=== PATIENT | female | born 1960 | race Caucasian/White ===

== ENCOUNTER 2021-01-19 15:58 | Outpatient (REF) | payer OTHER, SELFPAY ==
--- NOTE | ~2021-01-19 | MR_ITS ---
EXAMINATION: MR LUMBAR SPINE WITHOUT CONTRAST CLINICAL INFORMATION: Radiculitis. COMPARISON: Multiple prior MRI scans, the most recent from 07/03/2017. TECHNIQUE: MRI of the lumbar spine was obtained using routine sequences without contrast. FINDINGS: VERTEBRAL BODIES AND PARASPINAL STRUCTURES: There is a mild retrolisthesis of L4 on L5. There is marked narrowing of intervertebral disc height at L4-L5 and L5-S1 and there are degenerative endplate contour changes at these levels which have progressed compared to prior imaging. There appears to be partial fusion of the bodies of L5 and S1 bilaterally. There are new Schmorl's nodes at adjacent endplates at L4-L5. However, there has been interval decrease in the edematous endplate signal change at L4-L5. There is mild edematous signal in the right lateral osteophytes at L4-L5. There are no acute fractures and vertebral body heights are maintained. Overall, marrow signal is homogenous. The infrarenal abdominal aorta is slightly ectatic but not aneurysmal. The visualized pelvic structures are unremarkable. CONUS MEDULLARIS AND CAUDA EQUINA: Normal, terminating at the level of L1-L2. The lower thoracic spinal cord appears normal. The cauda equina nerve roots and filum terminale appear normal. SPINAL LEVELS: T11-T12: There has been interval regression of the small right-sided disc protrusion seen at this level on prior imaging. There is no central stenosis or compression of the lower thoracic spinal cord. The neural foramina are patent bilaterally. L1-L2: The facet joints appear normal bilaterally. Disc contour is normal. There is no central stenosis or foraminal narrowing. L2-L3: There is mild bilateral facet arthropathy. There is a mild diffuse disc bulge. There is no central stenosis or foraminal narrowing. L3-L4: There is mild to moderate bilateral facet arthropathy. There is a posterior disc protrusion which is focally more prominent in the midline with mild distortion of the ventral thecal sac, but not significantly changed compared to prior imaging. There are bilateral inferior foraminal disc protrusions without nerve root impingement. There is narrowing of the bilateral subarticular recesses, and there may be impingement traversing L4 nerve roots. There is mild central stenosis. L4-L5: There is moderate bilateral facet arthropathy. There is a broad-based posterior disc protrusion, which appears similar compared to prior imaging. There has been interval regression of the previously demonstrated extruded disc component extending behind the L5 centrally and to the right of midline. A small residual protruded fragment is demonstrated. There is narrowing of the bilateral subarticular recesses with impingement on the traversing L5 nerve roots. There is moderate central stenosis. L5-S1: There is mild bilateral facet arthropathy. There is a posterior disc osteophyte complex which does not have significant mass effect on the thecal sac. There are bilateral foraminal disc osteophyte complexes with impingement on the exiting L5 nerve roots, more prominently on the right. There is narrowing of the subarticular recesses without definite traversing S1 nerve root impingement. There is no central stenosis. MR/MR lumbar spine wo con IMPRESSION: 1. At L4-L5 there is facet arthropathy and there is a posterior disc protrusion. There has been interval regression of the disc extrusion extending into the right subarticular recess at this level, with a small extruded component remaining. There is persistent narrowing of the subarticular recesses with impingement on the traversing L5 nerve roots and there is moderate central stenosis. 2. At L3-L4 there is facet arthropathy and there is a posterior disc protrusion. There is narrowing of the bilateral subarticular recesses with impingement on the traversing L4 nerve roots. There is mild central stenosis. 3. At L5-S1 there is a posterior disc osteophyte complex extending into the neural foramina bilaterally, impinging on the exiting L5 nerve roots. There is no central stenosis. 4. There has been interval regression of the small right-sided disc protrusion which was demonstrated at T11-T12.
== END 2021-01-19 15:59 | disposition home or self-care (01) ==
LOC: HO.MRI 15:58
PROVIDERS: Visit Provider Physical Medicine & Rehabilitation
DX: M54.16 Radiculopathy, lumbar region (principal)
CPT/HCPCS: 72148

== ENCOUNTER → 2022-08-02 10:43 | Outpatient (BNVA) | payer OTHER, BC, SELFPAY | PROVIDERS: PCP Family Medicine; Visit Provider Internal Medicine | DX: M48.062 Spinal stenosis, lumbar region with neurogenic claudication (principal) | CPT/HCPCS: 99202 ==

== ENCOUNTER 2022-11-21 19:02 | Outpatient (REF) | payer OTHER, BC, SELFPAY ==
--- NOTE | ~2022-11-21 | MR_ITS ---
EXAMINATION: MR LUMBAR SPINE WITHOUT CONTRAST CLINICAL INFORMATION: Right leg radiculopathy. Low back pain. COMPARISON: MRI dated 01/19/2021. TECHNIQUE: Multiplanar, multisequence imaging was obtained. FINDINGS: VERTEBRAL BODIES AND PARASPINAL STRUCTURES: Severe chronic degenerative disc disease again evident at the L4-L5 level with a mild retrosubluxation. Significant disc desiccation and partial endplate osseous fusion changes are also again visible at the L5-S1 level. No compression fractures are seen. The paraspinal soft tissues are normal. CONUS MEDULLARIS AND CAUDA EQUINE: The distal cord, conus tip, and cauda equina nerve roots are normal. SPINAL LEVELS: L1-L2: No disc pathology. No central canal stenosis or foraminal narrowing. L2-L3: Broad-based right foraminal/extraforaminal disc protrusion has developed, though without nerve root impingement. No significant foraminal encroachment evident. No central canal stenosis. L3-L4: Endplate spurring and diffuse disc bulge again visible with hypertrophic facet arthropathy. No significant central canal stenosis. Patent neural foramina. L4-L5: Severe degenerative endplate changes and loss of disc height with a diffuse disc bulge and hypertrophic facet arthropathy. Mild central canal stenosis is stable. Xaic-zm-[id number] foraminal narrowing, more so on the left side. There is what may represent a vacuum disc extrusion measuring 9 mm in size extending into the left lateral recess of L5 superiorly. L5-S1: Severe chronic disc desiccation with endplate ridging. No central canal stenosis. Stable facet arthropathy. Osseous spurring results in mild left and bdly-jo-glcemrdw right foraminal encroachment, otherwise stable. MR/MR lumbar spine wo con IMPRESSION: 1. New broad-based right foraminal/extraforaminal disc protrusion at the L2-L3 level without nerve root impingement. 2. Stable severe degenerative disc disease at the L4-L5 level with mild central canal stenosis and zfkk-yr-qqhhclqm foraminal narrowing. Questionable focal 9 mm vacuum disc extrusion extending into the left lateral recess of L5 superiorly. 3. Stable severe chronic degenerative disc disease at the L5-S1 level with mzag-xb-fimfmbqg foraminal narrowing.
== END 2022-11-21 19:03 | disposition home or self-care (01) ==
LOC: HO.MRI 19:02
PROVIDERS: Visit Provider Internal Medicine
DX: M48.062 Spinal stenosis, lumbar region with neurogenic claudication (principal)
CPT/HCPCS: 72148

== ENCOUNTER 2023-03-14 11:19 | Outpatient (AMB) | payer BC, SELFPAY ==
--- NOTE | 2023-03-14 11:21 | MHC.OFFVIS ---
Intake Vital Signs 03/14/23 11:22 Height 5 ft 7 in Weight 172 lb BMI 26.9 Blood Pressure Location Lt brachial Position Sitting Respiration 12 Pulse 119 H Pulse Source Pulse Oximeter Pulse Oximetry (%) 96 Oxygen Delivery Method Room Air Intake Visit Reasons: MRI results/Confirmed/LVM Allergies No Known Drug Allergies Allergy (Unknown, Verified 03/14/23 11:23) Unknown Medication List - Last Reconciled 03/14/23 by Cristina Aldana LPN alprazolam 1 mg PO BID-TID PRN dextroamphetamine-amphetamine 12.5 mg 1 tab PO BID fentanyl 50 mcg/hr 1 patch topical Q3D lisinopril 30 mg PO DAILY mirtazapine 15 mg PO BEDTIME HPI MRI results/Confirmed/LVM HPI Details 62-year-old female who presents today to the office for a review of MRI scan. The patient reports swelling in her ankles, which started two years ago. It is sensitive to touch. She has difficulty walking or standing. She visited her foot and ankle surgeon on [facility] in [place]. She also underwent an x-ray for further evaluation. She denies any blue or black discoloration. She uses cold compression with ice, which provides mild relief from swelling. She had used braces in the past. She did use a walker at the [place] airport and was limping with ambulation. She reports right low back pain radiating down to the right leg. She has a burning sensation in her right knee. She has to rest after walking for 10?15 minutes. She has noticed gait imbalance when walking and has had a few falls. Her primary care physician adjusted and weaned her off pain medications. She used to take topical fentanyl patches for pain. She had an appointment with neurologist three weeks ago which was canceled. She did physical therapy about a year ago. [facility] Medical History (Updated 03/14/23 @ 11:54 by Charlie Funes MD) Spinal stenosis Severe recurrent major depression without psychotic features Sciatica of right side Post traumatic stress disorder Pap smear for cervical cancer screening Panic disorder Migraine Lumbar herniated disc Lipoma of back Hyperlipidemia History of degenerative disc disease Headache H/O mammogram Dysmenorrhea Chronic back pain Anxiety Benign essential hypertension Surgical History (Updated 09/24/21 @ 14:07 by MERT Garcia) No pertinent past surgical history Family History (Updated 09/24/21 @ 14:08 by MERT Garcia) Mother High blood pressure Anxiety Father No problems noted. Other Mental health problem Social History (Updated 09/24/21 @ 14:08 by MERT Garcia) Housing: House Alcohol intake: former Patient Tobacco Use Status: Current someday Tobacco user Cigarettes Per Day: 3 e-Cigarette/Vaping Use: Never Used Second Hand Smoke Exposure: Yes service: No Current occupational status: disabled Current occupational exposures/hazards: No Cognitive needs: No Hearing needs: No Vision needs: Yes (reading glasses) Review of Systems Const All systems reviewed & are unremarkable except as noted in HPI and below Physical Exam Vital Signs: Last Vital Signs Pulse 119 H 03/14/23 11:22 Resp 12 03/14/23 11:22 Pulse Ox 96 03/14/23 11:22 Oxygen Delivery Method Room Air 03/14/23 11:22 BMI result Body Mass Index 26.9 General: Appears afebrile. Alert and oriented. Mood and affect appropriate. Follows and participates in conversation appropriately. Respiratory effort is unlabored. Able to transition from sit to stand unassisted. Ambulates with bilaterally normal heel strike and toe off. Results Reviewed Results Reviewed: 11/21/22: MR LUMBAR SPINE WITHOUT CONTRAST FINDINGS: VERTEBRAL BODIES AND PARASPINAL STRUCTURES: Severe chronic degenerative disc disease again evident at the L4-L5 level with a mild retrosubluxation. Significant disc desiccation and partial endplate osseous fusion changes are also again visible at the L5-S1 level. No compression fractures are seen. The paraspinal soft tissues are normal. CONUS MEDULLARIS AND CAUDA EQUINE: The distal cord, conus tip, and cauda equina nerve roots are normal. SPINAL LEVELS: L1-L2: No disc pathology. No central canal stenosis or foraminal narrowing. L2-L3: Broad-based right foraminal/extraforaminal disc protrusion has developed, though without nerve root impingement. No significant foraminal encroachment evident. No central canal stenosis. L3-L4: Endplate spurring and diffuse disc bulge again visible with hypertrophic facet arthropathy. No significant central canal stenosis. Patent neural foramina. L4-L5: Severe degenerative endplate changes and loss of disc height with a diffuse disc bulge and hypertrophic facet arthropathy. Mild central canal stenosis is stable. Kfix-az-gchlrkdf foraminal narrowing, more so on the left side. There is what may represent a vacuum disc extrusion measuring 9 mm in size extending into the left lateral recess of L5 superiorly. L5-S1: Severe chronic disc desiccation with endplate ridging. No central canal stenosis. Stable facet arthropathy. Osseous spurring results in mild left and lojv-qr-yxzwpips right foraminal encroachment, otherwise stable. IMPRESSION: 1. New broad-based right foraminal/extraforaminal disc protrusion at the L2-L3 level without nerve root impingement. 2. Stable severe degenerative disc disease at the L4-L5 level with mild central canal stenosis and fpiy-ho-qomxzbyg foraminal narrowing. Questionable focal 9 mm vacuum disc extrusion extending into the left lateral recess of L5 superiorly. 3. Stable severe chronic degenerative disc disease at the L5-S1 level with jsrk-el-lclbgvkm foraminal narrowing. 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 If she is not a candidate for surgery, we will proceed with intracept/BVN ablation procedure as a possible treatment option. For the time being, a referral was provided to physical therapy. The patient will receive a call to schedule an appointment. A referral was provided to addiction medicine for consideration of Suboxone therapy since the patient is interested in coming off of her pain medications and worried about withdrawal symptoms. In the meanwhile, I will schedule her for a right L4-5 interlaminar ROSA to control her current lumbar radicular symptoms. Discussed the risks and benefits of the procedure with the patient in detail. All questions were answered. The patient is on board with the plan. Justification for interventional therapy: ? Patient with average pain > 6/10 ? Patient has exhausted conservative therapy Scribed for Dr. Funes by Angelito Syed, lpn medical assistant, on 03/14/2023. I, Dr. Funes, have personally reviewed and agree with the information entered by the scribe. 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
[2023-03-14 11:22] VITALS: PULSE 119; RESP 12; O2SAT 96; BMI 26.9
== END 2023-03-14 12:04 | disposition home or self-care (01) ==
PROVIDERS: PCP Pediatrics; Visit Provider Internal Medicine
DX: M54.16 Radiculopathy, lumbar region (principal); Z79.891 Long term (current) use of opiate analgesic
CPT/HCPCS: 99214

== ENCOUNTER → 2023-03-14 11:19 | Outpatient (BNVA) | payer OTHER, BC, SELFPAY | PROVIDERS: PCP Pediatrics; Visit Provider Internal Medicine ==

== ENCOUNTER 2023-03-19 13:22 | Outpatient (AMB) | payer BC, SELFPAY ==
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
[2023-03-19 13:35] VITALS: BP 134/94; PULSE 99; TEMP 36.6; O2SAT 98
== END 2023-03-19 14:25 | disposition home or self-care (01) ==
PROVIDERS: PCP Pediatrics; Visit Provider Nurse Practitioner Psychiatric/Mental Health
DX: F11.20 Opioid dependence, uncomplicated (principal)
CPT/HCPCS: 99204

== ENCOUNTER → 2023-03-19 13:22 | Outpatient (BNVA) | payer BC, SELFPAY | PROVIDERS: PCP Pediatrics; Visit Provider Nurse Practitioner Psychiatric/Mental Health ==

== ENCOUNTER 2023-03-21 11:25 | Outpatient (AMB) | payer BC, SELFPAY ==
--- NOTE | 2023-03-21 11:18 | MHC.AM.SUB ---
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 She expressed wanting to be comfortable for Vic and feels the patch is the only thing that can help. [facility] Medical History (Updated 03/21/23 @ 17:00 by Elif Orosco CNP) Spinal stenosis Severe recurrent major depression without psychotic features Sciatica of right side Post traumatic stress disorder Pap smear for cervical cancer screening Panic disorder Migraine Lumbar herniated disc Lipoma of back Hyperlipidemia History of degenerative disc disease Headache H/O mammogram Dysmenorrhea Chronic back pain Anxiety Benign essential hypertension Surgical History (Updated 09/24/21 @ 14:07 by MERT Garcia) No pertinent past surgical history Family History (Updated 09/24/21 @ 14:08 by MERT Garcia) Mother High blood pressure Anxiety Father No problems noted. Other Mental health problem Social History (Updated 09/24/21 @ 14:08 by MERT Garcia) Housing: House Alcohol intake: former Patient Tobacco Use Status: Current someday Tobacco user Cigarettes Per Day: 3 e-Cigarette/Vaping Use: Never Used Second Hand Smoke Exposure: Yes service: No Current occupational status: disabled Current occupational exposures/hazards: No Cognitive needs: No Hearing needs: No Vision needs: Yes (reading glasses) Review of Systems Const Reports as per HPI Assessment & Plan Assessment & Plan (1) Opioid dependence: Code(s): F11.20 - Opioid dependence, uncomplicated Plan: patient declines to start suboxone at this time follow up scheduled for April 02 Telehealth Telehealth Location of provider rendering services: practice address Location of patient: address on file Patient Identification confirmed using: Name, : Yes Telehealth method: voice only Patient verbally consented to treatment: Yes Patient verbally consented to billing insurance company: Yes Coding Level of Care Code Tele Est Pt Level 4 (73666) Diagnoses Opioid dependence F11.20 Time Spent (min) 30 Comment 20 mins with patient remainder on chart review and documentation
== END 2023-03-21 13:22 | disposition home or self-care (01) ==
PROVIDERS: PCP Pediatrics; Visit Provider Nurse Practitioner Psychiatric/Mental Health
DX: F11.20 Opioid dependence, uncomplicated (principal)
CPT/HCPCS: 99443

== ENCOUNTER → 2023-03-21 11:25 | Outpatient (BNVA) | payer BC, SELFPAY | PROVIDERS: PCP Pediatrics; Visit Provider Nurse Practitioner Psychiatric/Mental Health ==

== ENCOUNTER 2023-04-10 13:30 | Emergency (ER) | payer BC, SELFPAY ==
--- NOTE | ~2023-04-10 | XR_ITS ---
EXAMINATION: XR LUMBOSACRAL SPINE CLINICAL INFORMATION: Low back pain COMPARISON: None available. TECHNIQUE: Three views of the lumbosacral spine. FINDINGS: Straightening of normal lordosis likely related to spasm. Spondylosis and degenerative disc space narrowing noted, most pronounced L4-S1. Small spondylitic changes seen at other lumbar levels. Sacrum grossly intact. There is degenerative change at the SI joints, left greater than right. No evidence for acute compression fracture. XR/XR lumbar spine 2-3V IMPRESSION: 1. Lumbar spasm. No acute compression fractures. 2. Spondylosis and degenerative disc space narrowing L4-S1.
--- NOTE | ~2023-04-10 | CT_ITS ---
EXAMINATION: CT HEAD WITHOUT CONTRAST CLINICAL INFORMATION: Fall head strike COMPARISON: CT head from 01/16/2006 TECHNIQUE: Contiguous axial imaging was performed from the skull base to vertex without intravenous administration of contrast. This CT examination was performed using dose optimization techniques as appropriate, variously including the following: *Automated exposure control *Adjustment of mA and/or kV according to patient size (this includes techniques or standardized protocols for targeted exams where dose is matched to indication/reason for exam; i.e. extremities or head) *Use of iterative reconstruction technique DLP: 980 mGy-cm FINDINGS: There is no evidence of acute intracranial hemorrhage or territorial infarction. Chronic white matter small vessel ischemic changes. No abnormal mass effect or midline shift is seen. [place] to white matter differentiation is well preserved. No extra-axial fluid collections are identified. The ventricles are normal in size. There is no abnormal attenuation within the brain parenchyma. The osseous structures and soft tissues are normal. The mastoid air cells and visualized portions of the paranasal sinuses are well aerated. CT/CT cervical spine wo IV con IMPRESSION: 1. No acute intracranial pathology. 2. Chronic white matter small vessel ischemic changes. EXAMINATION: Noncontrast CT scan of the cervical spine. INDICATION: Fall neck pain COMPARISON: None. TECHNIQUE: Helical, multidetector axial images were obtained from the occiput to the upper thorax. Coronal and sagittal reformats of the cervical spine were provided for interpretation. DLP: 980 mGy-cm FINDINGS: No acute fractures or dislocations of the cervical spine are seen. Multilevel degenerative changes. Anatomic alignment and positioning of the vertebral bodies and posterior elements is noted. The atlantoaxial joint and craniovertebral articulations are normal without evidence of subluxation. There is no prevertebral soft tissue swelling. Calcification right thyroid lobe. Patulous esophagus. IMPRESSION: 1. No acute visible fracture or dislocation. 2. Multilevel degenerative changes.
--- NOTE | ~2023-04-10 | XR_ITS ---
EXAMINATION: XR CHEST CLINICAL INFORMATION: Fall, chest trauma COMPARISON: None available. TECHNIQUE: Frontal view of the chest was obtained. FINDINGS: No evidence for airspace consolidation or pneumothorax. Pleural surfaces appear to be clear. Hilar structures and pulmonary vascularity within normal limits. Possible nodule of the right upper lobe projecting near the posterior sixth rib margin measuring 1.2 cm. No distinct paravertebral abnormality. XR/XR chest 1V IMPRESSION: No evidence for airspace consolidation or pneumothorax. Possible nodule of the right upper lobe. CT evaluation the chest as an outpatient could be helpful toward further clarification.
[2023-04-10 13:47] VITALS: BP 126/74; BP 180/103; PULSE 103; PULSE 110; RESP 18; TEMP 36.6; O2SAT 100; O2SAT 95; BMI 26.6
[2023-04-10 13:51] VITALS: O2SAT 95
--- NOTE | 2023-04-10 14:32 | ECG_ITS ---
Test Reason : fal Blood Pressure : / mmHG Vent. Rate : 094 BPM Atrial Rate : 094 BPM P-R Int : 148 ms QRS Dur : 088 ms QT Int : 346 ms P-R-T Axes : 086 084 036 degrees QTc Int : 432 ms Normal sinus rhythm Septal infarct , age undetermined Abnormal ECG When compared with ECG of 17-MAR-2005 13:55, Septal infarct is now Present ST no longer elevated in Inferior leads Referred By: Jessica Logan Electronically Signed By:EBER ROWLEY MD
--- NOTE | 2023-04-10 14:42 | ED_ITS ---
HPI - Syncope General Chief Complaint: Syncope Stated Complaint: Syncope Time Seen by Provider: 04/10/23 14:32 Source: patient Mode of arrival: ambulatory Limitations: no limitations History of Present Illness HPI narrative: 62-year-old female history of opiate dependence, lower back pain, lumbar radiculopathy, spinal stenosis, hypertension, anxiety, obesity, current daily smoker presenting to the emergency department with a chief complaint of ?I passed out ?patient reports she does not know when this happened and she does not know what caused it she reports she had near syncopal episodes yesterday where she felt like the room was spinning and she lost balance however today there is no warning signs prior to passing out. Denies preceding chest pain, shortness of breath. She states she may have been dizzy however unclear. She states she did lose consciousness, unclear how long she was on the ground for. After the fall she has been experiencing right-sided lower back pain with radiation to right lower extremity. She is not on blood thinners. Patient denies fevers, chills, chest pain, shortness of breath, nausea, vomiting, headache, weakness, urinary/bowel incontinence/retention, saddle paresthesias. NIH stroke scale 0 GCS 15 Related Data Home Medications Medication Instructions Recorded Confirmed lisinopril 30 mg tablet 30 mg PO DAILY 09/24/21 03/14/23 alprazolam 1 mg tablet 1 mg PO BID-TID PRN 08/02/22 03/14/23 mirtazapine 15 mg tablet 15 mg PO BEDTIME depressive 08/02/22 03/14/23 disorder dextroamphetamine-amphetamine 12.5 1 tab PO BID 03/14/23 03/14/23 mg tablet Previous Rx's Medication Instructions Recorded buprenorphine 2 mg-naloxone 0.5 mg 1 film sublingual TID #10 ea 03/19/23 sublingual film (Suboxone) buprenorphine 4 mg-naloxone 1 mg 1 film sublingual TID #21 ea 03/19/23 sublingual film (Suboxone) Allergies Allergy/AdvReac Type Severity Reaction Status Date / Time No Known Drug Allergies Allergy Unknown Unknown Verified 03/19/23 13:37 Review of Systems 2 Review of Systems: Constitutional : No Weight loss, No Fever, No Chills, ENT/Mouth : No Hearing loss, No Ear Pain, No Nasal Congestion, No Sinus Pain, No Hoarseness, No sore throat, No Rhinorrhea, No Swallowing Difficulty Cardiovascular : No Chest Pain, No SOB Respiratory : No Cough, No Dyspnea Gastrointestinal : No Nausea, No Vomiting, No Diarrhea, No abdominal Pain, No Hematochezia, No Melena Genitourinary : No Dysuria, No Urinary Frequency, No Hematuria, No Urinary Incontinence, Musculoskeletal : positive back pain Skin : No Skin Lesions, No rash Neuro : No Weakness, No Numbness, No Paresthesias, no loss of bowel or bladder incontinence, no saddle anesthesia, + dizziness Yes all other systems are reviewed and are negative PMFSH Past Medical History Attestation statement: The following information was validated with the patient. Source: old records reviewed and nursing notes reviewed Onset Date is defined in the Problem List Problems that require an onset date and time if occurred within 24 hrs of arrival to the ED Aortic Dissection and Rupture; Neurologic impairment; Cardiopulmonary Arrest; Endotracheal Intubation; Insertion or Replacement of Mechanical Circulatory Assist Device Medical History Spinal stenosis Severe recurrent major depression without psychotic features Sciatica of right side Post traumatic stress disorder Pap smear for cervical cancer screening Panic disorder Migraine Lumbar herniated disc Lipoma of back Hyperlipidemia History of degenerative disc disease Headache H/O mammogram Dysmenorrhea Chronic back pain Anxiety Benign essential hypertension Surgical History No pertinent past surgical history Family History Family History Mother High blood pressure Anxiety Father No problems noted. Other Mental health problem Social History Social History Housing: House Alcohol intake: former Patient Tobacco Use Status: Current someday Tobacco user Cigarettes Per Day: 3 e-Cigarette/Vaping Use: Never Used Second Hand Smoke Exposure: Yes Advance Directives: No Advance Directives Information Provided: Yes service: No Current occupational status: disabled Current occupational exposures/hazards: No Cognitive needs: No Hearing needs: No Vision needs: Yes (reading glasses) Physical Exam 2 Vital Signs: Vital Signs: Last Vital Signs Temp 97.9 F 04/10/23 16:00 Pulse 91 04/10/23 16:00 Resp 19 04/10/23 16:00 BP 157/96 H 04/10/23 16:00 Pulse Ox 97 04/10/23 16:00 O2 Del Method Room Air 04/10/23 16:00 BMI result Body Mass Index 26.6 Vital signs stable Appearance: Alert.? Oriented X3.? No acute distress.? Head: Normocephalic, atraumatic, no step-offs or deformities Eyes: Pupils equal, round and reactive to light.? Neck: Normal inspection.? Neck supple.?( refusing/ took off cervical collar) CVS: Normal heart rate and rhythm.? Pulses normal.? Respiratory: No respiratory distress.? Breath sounds normal.? Abdomen: Soft and nontender.? Skin: Skin warm and dry.? Normal skin color.? Normal skin turgor.? Extremities: No lower extremity edema.? No calf ttp. 5/5 strength to bilateral upper and lower extremities Back: No midline tenderness. Right-sided lumbar paraspinous muscle tenderness on palpation. Negative straight leg raise bilaterally. Neuro: Oriented X 3.? No motor deficit.? No sensory deficit. CN 2-12 intact . No saddle paresthesias Course Reevaluation(s) Reevaluation #1: CBC no acute findings. Chemistry unremarkable. Total CPK 22, troponin negative and non ischemic EKG, BNP within normal limits. Ethanol negative. CT head and cervical spine no acute visible fracture dislocation of cervical spine, multilevel degenerative changes in the cervical spine. CT of the head chronic white matter small-vessel ischemic changes however no acute intracranial pathology. Chest x-ray no evidence of airspace consolidation or pneumothorax. Possible nodule of the right upper lobe. X-ray of lumbar spine lumbar spasm no acute compression fractures. Spondylosis and degenerative disc narrowing at L4 and S1 consistent with where patient's pain is on exam. Urine toxicology and UA pending. D-dimer pending. Time: 17:40 Reevaluation #2: Ethanol negative. D-dimer negative. UA and urine toxicology pending. Patient reports she is very overwhelmed by this environment I offered her medications and she does not anything to help her calm down. Patient reports she still in pain I explained to her that she may require further imaging, patient adamantly refusing. I did order CT chest, abdomen and pelvis without contrast because patient was adamant that we removed her IV refusing an IV line. I tried to deescalate the situation and calm patient down patient refusing everything. She states she called for a ride. Clinical coordinator also spoke to patient. Her nurse also spoke to her. Patient very upset and decided to leave the emergency department against medical advice. She verbalizes understanding of risks of leaving against medical advice which include , stroke, worsening condition an undiagnosed illnesses. Time: 19:15 Reevaluation #3: Patient alert and oriented x4, refused to sign AMA paperwork, states nobody ever brought it to her however when we tried to bring her she refuses to sign it. Ambulating with steady gait normal coordination. States there is somebody coming to pick her up Medications Administered Discontinued Medications Generic Name Dose Route Start Last Admin Trade Name Fremil PRN Reason Stop Dose Admin Ketorolac Tromethamine 30 mg 04/10/23 14:47 04/10/23 15:35 Ketorolac Tromethamine 15 Mg/Ml Vial IVPUSH 04/10/23 14:48 30 mg ONCE ONE Administration Medical Decision Making Medical Decision Making [facility] Narrative: 62-year-old female presents with syncope that occurred this morning and since then has been having right lower back pain with radiation to right lower extremity. No red flag symptoms associated with back pain LKWT- last night Physical examination patient has a lumbar paraspinous tenderness on the right with radiation to right buttocks. No saddle paresthesias. Normal strength to lower extremities. NIH stroke scale 0. GCS 15. No signs of acute trauma chest, abdomen or pelvis. Patient normal range of motion to neck. Neurological assessment nonfocal Patient took off her cervical collar History and physical exam concerning for syncope, will rule out metabolic derangements. Unlikely traumatic injury to head, neck, chest, abdomen or pelvis. Lower back pain likely lumbar radiculopathy versus lumbago versus herniated disc. Unlikely cauda equina, epidural abscess, cord compression. No chest pain, shortness of breath prior to fall unlikely dissection, PE, ACS. Will rule out alcohol intoxication and polysubstance abuse. NIH stroke scale 0 unlikely acute stroke, posterior stroke. TIA cannot be excluded. Will rule out orthostatic hypotension Plan at this time labs, imaging of head, neck, x-ray of chest, EKG. Differential Diagnosis Differential Diagnoses: The differential diagnosis associated with the presentation includes History and physical exam concerning for syncope, will rule out metabolic derangements. Unlikely traumatic injury to head, neck, chest, abdomen or pelvis. Lower back pain likely lumbar radiculopathy versus lumbago versus herniated disc. Unlikely cauda equina, epidural abscess, cord compression. No chest pain, shortness of breath prior to fall unlikely dissection, PE, ACS. Will rule out alcohol intoxication and polysubstance abuse. NIH stroke scale 0 unlikely acute stroke, posterior stroke. TIA cannot be excluded. Will rule out orthostatic hypotension Admission/Observation Consideration of admission/observation: Escalation of care including admission/observation considered likely Lab Data MDM Lab Attestation statement: I reviewed the patient's lab results. 04/10/23 15:49 04/10/23 15:49 Labs: Lab Results 04/10/23 04/10/23 Range/Units 15:49 15:50 WBC 7.8 (4.8-10.8) X10*3/uL RBC 5.25 (4.20-5.50) X10*6/uL Hgb 14.6 (12.0-16.0) g/dl Hct 43.3 (37.0-47.0) % MCV 82.5 (80.0-98.0) fL MCH 27.8 (27.0-33.0) pg MCHC 33.7 (31.0-35.0) g/dl RDW 14.5 (11.0-16.0) % Plt Count 320 (160-400) X10*3/uL MPV 9.0 L (9.4-12.3) fL Immature Gran % (Auto) 0.5 H (0.0-0.4) % Neut % (Auto) 75.2 H (45-73) % Lymph % (Auto) 17.8 L (20-40) % [place] % (Auto) 5.5 (2-11) % Eos % (Auto) 0.5 (0-4) % Baso % (Auto) 0.5 (0-2) % Lymph # (Auto) 1.4 (1.2-4.9) X10*3/uL [place] # (Auto) 0.4 (0.1-1.2) X10*3/uL Eos # (Auto) 0.0 (0.0-0.4) X10*3/uL Baso # (Auto) 0.0 (0.0-0.2) X10*3/uL Abs Immat Gran (auto) 0.04 H (0.00-0.03) X10*3/uL Absolute Neuts (auto) 5.9 (2.0-8.3) x10*3/uL Absolute Nucleated RBC 0.000 (0.0-0.012) X10*3/uL Nucleated RBC % (auto) 0.0 (0.0-0.2) /100WBC PT 11.7 (11.1-13.3) SEC INR 1.0 (0.9-1.1) D-Dimer High Sensitivty 211 NG/ML Sodium 137 (135-145) mmol/L Potassium 4.2 (3.3-5.1) mmol/L Chloride 103 (96-108) mmol/L Carbon Dioxide 27 (22-29) mmol/L Anion Gap 11 L (12-20) BUN 8 L (9-16) mg/dL Creatinine 0.70 (0.5-1.4) mg/dL Estim Creat Clear Calc 86.1 Estimated GFR > 60 Random Glucose 99 (60-115) mg/dL Calcium 9.5 (8.4-10.2) mg/dL Magnesium 1.9 (1.6-2.6) mg/dL Total Bilirubin 0.3 (0.0-1.0) mg/dL AST 14 (5-31) U/L ALT 13 (0-31) U/L Alkaline Phosphatase 86 (39-117) U/L Total Creatine Kinase 22 L (26-140) U/L Troponin I High Sens 2.7 (<3.5-17.0) ng/L B-Natriuretic Peptide < 10 (<100) pg/mL Total Protein 7.8 (6.5-8.0) g/dL Albumin 4.4 (3.5-5.0) g/dL Ethyl Alcohol < 10 mg/dL Independent Interpretation I performed an independent interpretation of an: EKG, Plain X-Ray (XR/XR lumbar spine 2-3V IMPRESSION: 1. Lumbar spasm. No acute compression fractures. 2. Spondylosis and degenerative disc space narrowing L4-S1.) and CT Scan (MPRESSION: 1. No acute visible fracture or dislocation. 2. Multilevel degenerative changes. CT/CT head/brain wo IV con IMPRESSION: 1. No acute intracranial pathology. 2. Chronic white matter small vessel ischemic changes.) Interpretation: XR/XR chest 1V IMPRESSION: No evidence for airspace consolidation or pneumothorax. Possible nodule of the right upper lobe. CT evaluation the chest as an outpatient could be helpful toward further clarification. Radiology Impression Discussion of test interpretation with radiology: I have reviewed the radiologist's reading. External Record Review External record reviewed: Office record and Primary care record Chronic Conditions Patient?s care impacted by: Other (opiate dependence ) Discharge Plan Discharge Clinical Impression: Left against medical advice, Dehydration, Syncope, Lumbar radiculopathy, Anxiety Patient Disposition: Left Against Medical Advice Instructions: Dehydration (ED), Syncope (ED), Against Medical Advice (ED), Acute Low Back Pain (ED), Panic Attack (ED), Anxiety (ED) Additional Instructions: Take your medications as prescribed. If you were prescribed antibiotics today, it is important that you take your medication to their entirety, do not skip any doses, do not finish them early. Follow-up with your primary care provider this week. Return to the emergency department with new or worsening symptoms. Such as fevers, chills, chest pain, shortness of breath, nausea, vomiting, dizziness, headache, vision changes, lethargy In case of emergency call 911 You decided to leave against medical advice, risks include , worsening condition and undiagnosed illnesses. Return if you change your mind Prescriptions: No Action lisinopril 30 mg tablet 30 mg PO DAILY alprazolam 1 mg tablet 1 mg PO BID-TID PRN dextroamphetamine-amphetamine 12.5 mg tablet 1 tab PO BID mirtazapine 15 mg tablet 15 mg PO BEDTIME buprenorphine-naloxone [Suboxone] 2-0.5 mg film 1 film sublingual TID Qty: 10 0RF buprenorphine-naloxone [Suboxone] 4-1 mg film 1 film sublingual TID Qty: 21 0RF Rx Instructions: to be started after induction with 2mg films Referrals: Physician,None [Primary Care Provider] - 2 days Stand Alone Forms: Against Medical Advice
[2023-04-10] MEDS: Ketorolac Tromethamine 15 MG/ML VIAL 30 MG IVPUSH (15:35)
[2023-04-10 15:56] LABS: MANUAL DIFF FLAG NO
[2023-04-10 15:57] LABS: Basophils Percent Auto 0.5 % (0-2); Eosinophils Percent Auto 0.5 % (0-4); Hematocrit 43.3 % (37.0-47.0); Hemoglobin 14.6 g/dl (12.0-16.0); Imm Gran Abs Auto 0.04 X10*3/uL (0.00-0.03); Imm Gran Pct Auto 0.5 % (0.0-0.4); Lymphocytes Absolute Auto 1.4 X10*3/uL (1.2-4.9); Lymphocytes Percent Auto 17.8 % (20-40); Mean Corpuscular HGB Conc 33.7 g/dl (31.0-35.0); Mean Corpuscular Hemoglobin 27.8 pg (27.0-33.0); Mean Corpuscular Volume 82.5 fL (80.0-98.0); Monocytes Absolute Auto 0.4 X10*3/uL (0.1-1.2); Monocytes Percent Auto 5.5 % (2-11); Neutrophils Absolute Auto 5.9 x10*3/uL (2.0-8.3); Neutrophils Percent Auto 75.2 % (45-73); Platelet Count 320 X10*3/uL (160-400); Red Blood Count 5.25 X10*6/uL (4.20-5.50); Red Cell Distribution Width 14.5 % (11.0-16.0); White Blood Count 7.8 X10*3/uL (4.8-10.8)
[2023-04-10 16:00] VITALS: BP 157/96; PULSE 91; RESP 19; TEMP 36.6; O2SAT 97
[2023-04-10 16:03] LABS: Prothrombin Time 11.7 SEC (11.1-13.3)
[2023-04-10 16:10] LABS: Ethanol < 10 mg/dL
[2023-04-10 16:11] LABS: Alanine Aminotransferase 13 U/L (0-31); Albumin Level 4.4 g/dL (3.5-5.0); Alkaline Phosphatase 86 U/L (39-117); Anion Gap 11 (12-20); Aspartate Amino Transferase 14 U/L (5-31); Bilirubin Total 0.3 mg/dL (0.0-1.0); Blood Urea Nitrogen 8 mg/dL (9-16); Calcium 9.5 mg/dL (8.4-10.2); Carbon Dioxide 27 mmol/L (22-29); Chloride 103 mmol/L (96-108); Creatinine Clr Calc Pharmacy 86.1; Estimated Glomerular Filt Rate > 60; Glucose Random 99 mg/dL (60-115); Magnesium 1.9 mg/dL (1.6-2.6); Potassium 4.2 mmol/L (3.3-5.1); Sodium 137 mmol/L (135-145); Total Protein 7.8 g/dL (6.5-8.0)
[2023-04-10 16:17] LABS: B Type Natriuretic Peptide < 10 pg/mL (<100)
[2023-04-10 16:18] LABS: Troponin-I High Sensitivity 2.7 ng/L (<3.5-17.0)
[2023-04-10 17:50] LABS: D Dimer High Sensitivity 211 NG/ML
--- NOTE | 2023-04-10 18:28 | PC.NURSE ---
patient requesting to leave, does not want any more medications stating that the toradol made her feel flushed and it did not help. requesting to remove her IV, the bed is uncomfortable. provider aware.
--- NOTE | 2023-04-10 19:16 | PC.NURSE ---
patient attempting to walk out, aware of leaving AMA. provider attempting to speak with patient however patient refusing to stay. when patient was brought back into room, patient once again did not wait for paperwork. ambulated out of emergency room d/t her ride being here .
== END 2023-04-10 19:18 | disposition left against medical advice (07) ==
PROVIDERS: Physician Assistant; Emergency Provider Student in an Organized Health Care Education/Training Program
DX: R55 Syncope and collapse (principal); E86.0 Dehydration; M54.16 Radiculopathy, lumbar region; F41.9 Anxiety disorder, unspecified; I10 Essential (primary) hypertension; E78.5 Hyperlipidemia, unspecified; F11.20 Opioid dependence, uncomplicated; F17.210 Nicotine dependence, cigarettes, uncomplicated; Z79.899 Other long term (current) drug therapy
CPT/HCPCS: 36415; 70450; 71045; 72100; 72125; 80053; 80307; 82550; 83735; 83880; 84484; 85025; 85379; 85610; 93005; 96374; 99284; 99285; J1885

== ENCOUNTER → 2023-04-10 14:32 | Outpatient (BNV) | payer BC, SELFPAY | PROVIDERS: Emergency Provider Student in an Organized Health Care Education/Training Program; Visit Provider Internal Medicine Cardiovascular Disease | DX: R94.31 Abnormal electrocardiogram [ECG] [EKG] (principal) | CPT/HCPCS: 93010 ==